=== PATIENT | male | born 1940 | race Caucasian/White ===

== ENCOUNTER 2024-05-10 22:03 | Inpatient (IN) | payer OTHER, SELFPAY ==
[2024-05-10] VITALS (7 sets, daily range): BP systolic 173–217; BP diastolic 76–91
--- NOTE | 2024-05-10 17:16 | ED.GENMED ---
History of Present Illness
General
Chief Complaint: Fever
Source: patient, family (Daughter at bedside) and gill box fixer (Language line gill box fixer)
Exam Limitations: none
Time Seen by Provider: 05/10/24 17:12
Nursing documentation reviewed up to this point in time: agreed with
History of Present Illness
History of Present Illness:
83 yo male from home, non Bulgarian speaking, Ukranian only, seems confused, follows few commands from Language Line, not answering questions from Language line gill box fixer. Will await family who is reportedly on their way.
Pt temp for EMS 101.2, given NSS 1 L IV en route. Pt is alert, not speaking.
Daughter now at bedside speaking through language line gill box fixer. She states for the past 2 to 3 days patient has had gradually decreasing appetite, today his face was red, he complained of pain in his legs, and his heart. States he typically
walks with a cane, he has been weak.
She denies him having any history of dementia but she does state he speaks with 'his Varinder' and has 'moment when he is talking to his Varinder to see what he should do.'
At this time, she is asking him if he has chest pain, trouble breathing, abdominal pain all to which she states no. He also has had no nausea or vomiting, diarrhea or constipation.
Daughter states 1 month ago he went to the [place] ER and was told he had high blood pressure of 160/100, he was put on hypertensive medications for 30 days but then he ran out and she never got it refilled.
His only medication now with him is isosorbide 30 mg at bedtime which was filled on 04/19/2024.
Daughter states his only other medical history is an inguinal hernia.
Past History
Past History
ED Past Medical History: HTN
ED Past Surgical History: Other (Inguinal hernia)
Review of Systems
Review of Systems
Allergies reviewed?: Yes
Other source history: family and other (Language line)
Constitutional: Reports fever (100.1 rectally here, reported 101.2 by EMS) and fatigue
Respiratory: Denies cough or trouble breathing
Cardiac: Denies chest pain, diaphoresis or syncope
ABD/GI: Denies abdominal pain, nausea, vomiting, diarrhea or constipated
: Denies dysuria, frequency or difficulty voiding
Musculoskeletal: Reports no symptoms
Skin: Reports no symptoms
Neurological: Reports no symptoms
Phy Exam
Physical Exam
Physical Exam:
GENERAL: No acute distress. A&Ox3.
CONSTITUTIONAL: Afebrile.
EYES: clear, conjunctivae normal
ENMT: moist mucus membranes, Pharynx nl
RESPIRATORY: Regular respirations, nonlabored, lungs clear.
CARDIOVASCULAR: Regular rate and rhythm, no murmurs, no rubs.
GI: Soft, nontender, normal BS
MUSCULOSKELETAL: Moves with ease. Well perfused. No edema
SKIN: Warm, dry, pink
PSYCH: Quiet, admits he's 'afraid' per daughter, depressed mood and affect. Well kept, interactive and appropriate with daughter
NEUROLOGIC: Awake, alert and oriented. No focal neurological deficits
Course
Orders/Labs/Results
Orders:
Orders
05/10/24 17:14
Straight cath- Treatment ONCE
05/10/24 17:15
Electrocardiogram (*1) Urgent
Reason for Study: Other
Other Reason for Exam: sepsis
EKG- Treatment ONCE
CR Chest Portable - 1 View Urgent
Comment:
Reason For Exam: Fever
Reason Study Needs to be Portable: Unable to Transport
05/10/24 17:16
0.9% Sodium Chloride 1000 ml [Nss] 1,000 ml IV BOLUS
Acetaminophen [Tylenol/Feverall] 650 mg RECTAL NOW STA
05/10/24 17:22
Complete Blood Count/With Diff Urgent
Comprehensive Metabolic Panel Urgent
Lactic Acid Q4H
Comment: CANCEL 2nd LACTIC ACID IF 1st LACTIC ACID IS LESS THAN 2
PTT Urgent
Prothrombin Time Urgent
Blood Culture Q30M
CAREN Source: Blood/Venous
Specimen Description:
Influenza A+B Rapid Molecular Urgent
CAREN Source: Nasal Swab
Specimen Description:
05/10/24 17:24
COVID-19 Antigen Urgent
Source: Nasal Swab
05/10/24 17:31
Troponin I Urgent
05/10/24 17:48
Blood Culture Q30M
CAREN Source: Blood/Venous
Specimen Description:
05/10/24 17:50
Urinalysis Reflex To Culture Urgent
Date Specimen was Collected: 05/10/24
Time Specimen was Collected: 17:49
05/10/24 18:25
Influenza A+B Rapid Molecular Routine
CAREN Source: NSWAB
Specimen Description:
Date Specimen was Collected: 05/10/24
Time Specimen was Collected: 18:25
05/10/24 20:[address] [CT Head W/o Iv Contrast] Stat
Comment:
Reason For Exam: change in mental status
05/10/24 20:55
Admit/Transfer Patient As Directed
Co-Sign Provider:
Level of Care: Inpatient admission
Assign to:: Telemetry
Physician / Group: Fermin Marin
Diagnosis: pneumonia, TME
Reason for Telemetry: Arrhythmia
Date to Stop Telemetry: 05/13/24
Time to Stop Telemetry: 11:00
Reason for Hospitalization: pneumonia, TME
Expected length of stay greater than two midnights?: Yes
ELOS- Estimated Length of Stay in days: 3
I certify the patient meets the requirements for IP care: Yes
05/10/24 20:56
Code Status As Directed
Resuscitation Status: Full Code
05/10/24 21:01
CefTRIAXone [Rocephin] 1,000 mg IV NOW STA
Doxycycline Hyclate [Vibramycin] 100 mg 0.9% Sodium Chloride 250 ml [Nss] 250 ml IV NOW
05/10/24 21:03
Sterile Water [Sterile Water For Injection] 10 ml IV NOW STA
05/13/24 11:00
DC Protocol for Telemetry ONCE
Abnormal Lab Results
05/10/24
17:22
RBC 4.47 L 10^6/uL
(4.70-6.10)
Hgb 12.0 L g/dL
(13.0-18.0)
Hct 35.8 L %
(39.0-52.0)
MCH 26.8 L pg
(27.0-31.0)
Absolute Lymphs (auto) 1.1 L 10^3/uL
(1.2-3.4)
Neutrophils % 77.6 H %
(42.2-75.2)
Lymphocytes % 13.5 L %
(20.5-51.1)
PT 15.4 H Sec
(11.4-14.6)
Glucose 105 H mg/dl
(70-99)
Alkaline Phosphatase 136 H U/L
(38-126)
05/10/24 17:22
05/10/24 17:22
Vital Signs
Initial and Last Documented VS:
Initial Vital Signs
Temp Pulse Resp BP Pulse Ox
100.1 F 88 30 217/88 100
05/10/24 17:10 05/10/24 17:10 05/10/24 17:10 05/10/24 17:10 05/10/24 17:10
Last Documented Vital Signs
Temp Pulse Resp BP Pulse Ox
100.1 F 62 16 174/78 97
05/10/24 17:10 05/10/24 23:30 05/10/24 23:30 05/10/24 23:00 05/10/24 23:30
MDM/Problems Addressed
Differential Diagnosis Includes:
UTI,
MDM/Problems Addressed:
83 yo male from home, non Bulgarian speaking, Ukranian only, seems confused, follows few commands from Language Line, not answering questions from Language line gill box fixer. Will await family who is reportedly on their way.
Pt temp for EMS 101.2, given NSS 1 L IV en route. Pt is alert, not speaking.
Daughter now at bedside speaking through language line gill box fixer. She states for the past 2 to 3 days patient has had gradually decreasing appetite, today his face was red, he complained of pain in his legs, and his heart. States he typically
walks with a cane, he has been weak.
She denies him having any history of dementia but she does state he speaks with 'his Varinder' and has 'moment when he is talking to his Varinder to see what he should do.'
At this time, she is asking him if he has chest pain, trouble breathing, abdominal pain all to which she states no. He also has had no nausea or vomiting, diarrhea or constipation.
Daughter states 1 month ago he went to the [place] ER and was told he had high blood pressure of 160/100, he was put on hypertensive medications for 30 days but then he ran out and she never got it refilled.
His only medication now with him is isosorbide 30 mg at bedtime which was filled on 04/19/2024.
Daughter states his only other medical history is an inguinal hernia.
1819:
CBC unremarkable
CMP Normal
Troponin WNL
U/A neg
[facility] [address] called: Pt HTN medication was not on file there
Chest x-ray radiology report read: IMPRESSION:
Mild medial right upper lobe pneumonia versus pleural-based mass. This would better be evaluated by chest CT examination preferably with IV contrast. Vascular shadows cannot be excluded.
Patient mild change in mental state most likely due to his pneumonia infection.
Daughter at bedside states he is responding normally to her
8:00 p.m.
Plan: Admit: Pneumonia: Change in mental state
Hospitalist notified of admission
*Critical Care Note
Total Time (30-74mins, 75-104mins- exclusive of procedures): Not Applicable
ED Attending Note
-
Portions of this chart may have been created with voice recognition software.� Occasional wrong word or��sound alike� substitutions may have occurred due to the inherent limitations of voice recognition software.
Discharge Plan
Departure
Patient Disposition: Admit
Date of Disposition: 05/10/24
Time of Disposition: 19:54
Admit to: Med/Surg
Presentation/result/management discussed w/ accepting MD/DO: Hospitalist
Condition: Fair
Covid-19: Negative COVID-19
Discharge Problem:
RLL pneumonia, Altered mental state
Interventions
Interventions:
*Risk Screen - Suicide Last Done: 05/10/24 17:10
*General Assessment Last Done: 05/10/24 17:10
*Neglect/Abuse Screening Last Done: 05/10/24 17:10
ED- Fall Risk Assessment Last Done: 05/10/24 18:35
*ED COVID-19 Vaccine History Last Done: 05/10/24 17:10
*Nursing Disposition Last Done: 05/10/24 23:31
ED- Neurological Assessment Last Done: 05/10/24 17:27
ED-Skin Assessment Last Done: 05/10/24 17:28
[2024-05-10 17:34] LABS: % Basophils 0.1 % (0-2); % Eosinophils 0.5 % (0-6); % Immature Granulocytes 0.5 % (0-0.5); % Lymphocytes 13.5 % (20.5-51.1); % Monocytes 7.8 % (1.7-9.3); % Neutrophils 77.6 % (42.2-75.2); Absolute Lymphocytes 1.1 10^3/uL (1.2-3.4); Absolute Monocytes 0.6 10^3/uL (0.1-0.6); Absolute Neutrophils 6.4 10^3/uL (1.4-6.5); Hematocrit 35.8 % (39.0-52.0); Mean Corp Hgb Conc. 33.5 g/dL (33.0-37.0); Mean Corpuscular Hgb 26.8 pg (27.0-31.0); Mean Corpuscular Volume 80.1 fL (80.0-94.0); Mean Platelet Volume 8.7 fL (7.4-10.4); Nucleated Red Blood Cells % 0 % (-); Platelet Count 248 10^3/uL (130-400); Red Blood Cell Count 4.47 10^6/uL (4.70-6.10); Red Cell Dist. Width 12.6 % (11.5-14.5); White Blood Cell Count 8.2 10^3/uL (4.8-10.8)
[2024-05-10 17:45] LABS: INR 1.17; PT 15.4 Sec (11.4-14.6)
[2024-05-10 17:46] LABS: APTT 30.1 Sec (23.4-35.0)
[2024-05-10 17:48] LABS: COVID-19 Antigen Negative (Negative)
[2024-05-10 17:48] LABS: Lactic Acid 1.7 mmol/L (0.7-2.0)
[2024-05-10 17:49] LABS: ALT (SGPT) 12 U/L (0-50); AST (SGOT) 18 U/L (17-59); Albumin 3.7 g/dl (3.5-5.0); Alkaline Phosphatase 136 U/L (38-126); Blood Urea Nitrogen 18 mg/dl (9-20); Calcium 8.6 mg/dl (8.4-10.2); Carbon Dioxide 22 mmol/L (22-30); Chloride 105 mmol/L (98-107); Glucose 105 mg/dl (70-99); Potassium 3.7 mmol/L (3.5-5.1); Sodium 138 mmol/L (135-145); Total Bilirubin 0.7 mg/dl (0.2-1.3); eGFR > 60.00
[2024-05-10] MEDS: TYLENOL/FEVERALL 650 MG RECTAL (17:52)
[2024-05-10 18:21] LABS: Troponin I < 0.012 ng/ml
[2024-05-10] MEDS: NSS 1000 IV (18:23)
[2024-05-10 18:48] LABS: Urine Albumin Negative (Neg - Trace); Urine Bilirubin Negative (Negative); Urine Character Clear (Clear); Urine Color Yellow; Urine Glucose Negative (Negative); Urine Ketone Negative (Negative); Urine Leukocyte Negative (Negative); Urine Nitrite Negative (Negative); Urine Occult Blood Negative (Negative); Urine Urobilinogen Negative (Neg - 1+)
--- NOTE | 2024-05-10 20:22 | HPS.HSE ---
Addendum entered and electronically signed by Fermin Marin MD 05/10/24 21:14:
see update note for addendum
Original Note:
Family Physician
-
Family Physician: Benji Fernandez
Chief Complaint
-
fever
History of Present Illness
Patient is a 83-year-old male with past medical history significant for hypertension who presented to [facility] ED for evaluation of fever. Patient daughter and grandson at bedside to assist in history. Patient was at baseline yesterday with just a
decreased appetite. Today is reported he had bilateral lower extremity pain and difficulty ambulating, with decreased appetite and red face. Family brought him for evaluation and at ED assessment patient was nonverbal. Patient normally ambulates
with assistance of cane at home. Daughter described patient speaks with 'his sabino' and will ask 'his angle what he should do.' Denies any psych or dementia diagnosis. Denies any chills, shortness of breath, nausea, vomiting, constipation, diarrhea
or urinary symptoms.
Medical History
Past Medical History
Past Medical History: Reports Other
Additional Past Medical History:
hypertension
Past Surgical History: Reports None
Social History
Tobacco: Non-smoker
Alcohol: None
Drug: None
Living: With Family
Family History
Family History: Unable to Obtain
Allergies / Home Medications
Allergies reflects when Allergies were last updated in [employer].
Home Medications with original date entered in [employer]
Allergy/Medication List:
Allergies
Allergy/AdvReac Type Severity Reaction Status Date / Time
No Known Allergies Allergy Verified 05/10/24 20:16
Home Medications
isosorbide mononitrate 30 mg tablet,extended release 24 hr 30 mg PO DAILY 05/10/24
Review of Systems
-
Unable to obtain full review of systems at this time due to: Patient Non-verbal
History Source: Patient and Family
Constitutional: Reports Fever
EENT: Reports No Symptoms
Respiratory: Reports No Symptoms
Cardiac: Reports No Symptoms
Abdomen/GI: Reports Anorexia (decreased PO intake over past several days)
: Reports No Symptoms
Musculoskeletal: Reports Other (bilateral leg pain)
Skin: Reports No Symptoms
Neurological: Reports Weakness
Endocrine: Reports No Symptoms
Hematologic/Lymphatic: Reports No Symptoms
Psych: Reports No Symptoms
Physical Exam
Vital Signs
Vital Signs
Temp Pulse Resp BP Pulse Ox
100.1 F 84 14 182/87 96
05/10/24 17:10 05/10/24 19:00 05/10/24 19:00 05/10/24 19:00 05/10/24 19:00
Physical Exam
General: Well Developed and No Apparent Distress
HEENT: NormoCephalic, Moist mucous membranes, Atraumatic, [place] Conjunctivae, Nose Appears Normal and Ears Appear Normal
Respiratory: Clear, Non Labored Respirations and Decreased Breath Sounds
Cardiac: S1/S2 and Regular Rhythm; No Murmur, Rub or Gallop
Breast: Deferred by me
GI: Soft, Non Tender, Non Distended and Normal Bowel Sounds; No Organomegaly
Rectal: Deferred by Provider
Genito-urinary: Deferred by me
Musculoskeletal: No Clubbing, No Cyanosis and No Edema
Skin: Warm and IV/Catheter Site; No Rash
Neuro: Awake and Nonfocal/grossly intact
Laboratory Results
-
05/10/24 17:22
05/10/24 17:22
Laboratory Results
PT 15.4 Sec (11.4-14.6) H 05/10/24 17:22
INR 1.17 05/10/24 17:22
APTT 30.1 Sec (23.4-35.0) 05/10/24 17:22
Lactic Acid Cancelled 05/10/24 21:15
Total Bilirubin 0.7 mg/dl (0.2-1.3) 05/10/24 17:22
AST 18 U/L (17-59) 05/10/24 17:22
ALT 12 U/L (0-50) 05/10/24 17:22
Alkaline Phosphatase 136 U/L (38-126) H 05/10/24 17:22
Troponin I < 0.012 ng/ml 05/10/24 17:31
Data Reviewed
-
Diagnostic Radiology: Report Reviewed by me (CRX: Mild medial right upper lobe pneumonia versus pleural-based mass. This would better be evaluated by chest CT examination preferably with IV contrast. Vascular shadows cannot be excluded.)
Medical Tests (Nuc Med, Echo, EKG etc): Report Reviewed by me (EKG: NORMAL SINUS RHYTHM LEFT AXIS DEVIATION)
Lab Data: Labs Reviewed by me
Impression/Plan
-
IMPRESSION/PLAN:
#change in mental status
#pneumonia
CXR: Mild medial right upper lobe pneumonia versus pleural-based mass. This would better be evaluated by chest CT examination preferably with IV contrast. Vascular shadows cannot be excluded.
Covid/Influenza: negative
Head CT: pending
Chest CT: pending
- admit to telemetry
- IV antibiotics
- supportive care
- PT/OT evaluation
- NPO until speech evaluation
#hypertension
- continue isosorbide
- PRN hydralazine SBP >160
Code status: full code
DVT prophylaxis: Lovenox sq
--- NOTE | 2024-05-10 21:14 | W.PN.UPDATE ---
Update Note
Progress Note Update
I saw and examined the patient.
The PATTERN GRADER SUPERVISOR Kasia's note was reviewed and I agree with the note.
Comment: Briefly, an 83 y/o M, hx of HTN presenting to ER with fever, decreased appetite/oral intake and generalized lower extremity weakness with ambulating. Patient progressively worse and at one point became nonverbal. Baseline ambulates with
cane. Daughter reports some hallucinations. No known dementia or psych history per family. No other complaints.
Workup in ER revealed CXR with PNA vs Mass for which CT chest was recommended. CT head also ordered. IV abx were started.
Physical Exam
General: Well Developed and No Apparent Distress
HEENT: NormoCephalic, Moist mucous membranes, Atraumatic, [place] Conjunctivae, Nose Appears Normal and Ears Appear Normal
Respiratory: Clear, Non Labored Respirations and Decreased Breath Sounds
Cardiac: S1/S2 and Regular Rhythm; No Murmur, Rub or Gallop
Breast: Deferred by me
GI: Soft, Non Tender, Non Distended and Normal Bowel Sounds; No Organomegaly
Rectal: Deferred by Provider
Genito-urinary: Deferred by me
Musculoskeletal: No Clubbing, No Cyanosis and No Edema
Skin: Warm and IV/Catheter Site; No Rash
Neuro: Awake and Nonfocal/grossly intact
Plan: Likely metabolic encephalopathy from presumed pneumonia. IV Abx ordered. AM procal. obtain recommended CT chest with IV Contrast to further evaluate CXR findings of PNA or mass. evaluate for occult CVA with CT head. IVF. NPO pending ST eval
[2024-05-10] MEDS: ROCEPHIN 1000 MG IV (21:22)
[2024-05-10] MEDS: STERILE WATER FOR INJECTION 10 ML IV (21:22)
[2024-05-10] MEDS: VIBRAMYCIN 260 MG IV (21:30)
[2024-05-11] VITALS (12 sets, daily range): BP systolic 106–202; BP diastolic 68–100; PULSE 99; O2SAT 100; BMI 21.1
[2024-05-11] MEDS: NSS 1000 IV (01:56)
[2024-05-11] MEDS: APRESOLINE 5 MG IV ×2 (03:43→08:24)
--- NOTE | 2024-05-11 05:27 | PTCARENOTE ---
Pt arrived to floor via stretcher from the ED. Pt AAOx2- Ukranian speaking. Pt with very scared fearful look on face. Language line obtained, Pt asking for toilet, pt attempted to use urinal laying in bed, pt unable to void. Pt assisted to stand at
bedside, pt able to void 100ml clear yellow urine. Pt continues to attempt to void, repeating 'toilet', but unable to void anymore. Bladder scan performed, 650ml scanned, St cath order obtained, pt st cathed for 600ml clear yellow urine. Pt agitated
and fighting during initial st cath, but once bladder draining was calm. Language line once again attempted now that bladder emptied. Pt able to state he is in hospital, but states he is scared at home bc someone is casting spells on him. Emotional
support provided via science technician. Pt denies any complaints of pain at this time. Left AC int leaking, VAT RN at bedside to place new line. NSS @ 80ml/hr now infusing via right wrist #24 int. BP elevated 202/100, PRN Hydralazine administered as
ordered, Repeat BP 166/81. Bed alarm on bed. Call lagunas in reach. Will continue to monitor..
[2024-05-11 07:24] LABS: Hematocrit 35.3 % (39.0-52.0); Mean Corpuscular Hgb 27.3 pg (27.0-31.0); Mean Corpuscular Volume 80.2 fL (80.0-94.0); Mean Platelet Volume 8.9 fL (7.4-10.4); Platelet Count 236 10^3/uL (130-400); Red Cell Dist. Width 12.8 % (11.5-14.5); White Blood Cell Count 7.7 10^3/uL (4.8-10.8)
[2024-05-11 07:52] LABS: ALT (SGPT) 11 U/L (0-50); AST (SGOT) 19 U/L (17-59); Albumin 3.4 g/dl (3.5-5.0); Alkaline Phosphatase 120 U/L (38-126); Blood Urea Nitrogen 13 mg/dl (9-20); Calcium 8.7 mg/dl (8.4-10.2); Carbon Dioxide 24 mmol/L (22-30); Chloride 105 mmol/L (98-107); Estimated Creatinine Clearance 64 ml/min; Glucose 97 mg/dl (70-99); Potassium 3.9 mmol/L (3.5-5.1); Sodium 136 mmol/L (135-145); Total Protein 6.5 g/dl (6.3-8.2); eGFR > 60.00
[2024-05-11] MEDS: FLUSH (NSS) 1 FLUSH IV (08:10)
[2024-05-11] MEDS: VIBRAMYCIN 260 MG IV ×2 (08:10→20:17)
--- NOTE | 2024-05-11 08:55 | PTOTSP ---
Speech Language Pathology
Pt seen for clinical bedside swallow evaluation. P.O. trials of puree, regular solids, and thin liquids provided. Adequate mastication, bolus formation, and A-P transit noted with no oral residue. No overt signs of aspiration.
Recommend:
(1) Regular solids/thin liquids
(2) General aspiration precautions
(3) Meds as tolerated
(4) POSTAGE MACHINE OPERATOR to sign off. Please reconsult as indicated
--- NOTE | 2024-05-11 10:19 | PTCARENOTE ---
Pt voided 150 ml clear yellow urine in urinal; bladder scanned for 634 ml. Attempted to straight cath pt- unable to pass catheter; pt in much discomfort during attempt. Dr. Marin notified. Will continue to monitor.
[2024-05-11] MEDS: IMDUR (EXTENDED RELEASE) 30 MG PO (10:33)
[2024-05-11 12:37] LABS: Procalcitonin < 0.05 ng/ml (0.0-0.25)
--- NOTE | 2024-05-11 12:46 | CONS.URO ---
Consultation
-
Date/Time Consultation Requested: 05/11/24 1215
Date/Time Consultation Performed: 05/11/2024 1225
Requesting Provider: Brianna
Performing Provider: Evan
Reason for Consultation: Meza placement
Medical History
History of Present Illness
Dr Reed indicated that medical staffing coordinator was unable to place Meza and requested that a Meza be placed.
Allergies/Home Medications
Allergies
Allergy/AdvReac Type Severity Reaction Status Date / Time
No Known Allergies Allergy Verified 05/10/24 20:16
Home Medications
�Medication �Instructions �Recorded �Confirmed �Type
isosorbide mononitrate 30 mg 30 mg PO DAILY 05/10/24 05/10/24 History
tablet,extended release 24 hr
Physical Exam
Vital Signs
Vital Signs
Temp Pulse Resp BP Pulse Ox
98.1 F 91 18 175/90 100
05/11/24 11:27 05/11/24 11:27 05/11/24 11:27 05/11/24 11:27 05/11/24 11:27
Lab / Testing Results
Laboratory Results
05/11/24 07:12
05/11/24 07:12
Physical Exam
elderly male in bed
uncircumcised phallus: prepped; 16 Fr Meza placed with return of urine
Assessment / Plan
-
urinary retention
difficult Meza placement
--- NOTE | 2024-05-11 13:12 | PTCARENOTE ---
# [address] F [address] by [address] Gordon. Meza patent large amts clear yellow urine. leg strap applied to Rt thigh; unable to secure Statlok d/t Meza length. Will continue to monitor.
[2024-05-11] MEDS: FLOMAX 0.4 MG PO (14:07)
[2024-05-11] MEDS: TYLENOL 650 MG PO (14:07)
[2024-05-11 14:41] LABS: PSA, Total - Screen 0.47 ng/ml (0.0-4.0)
--- NOTE | 2024-05-11 16:15 | W.PN.HOSP.TC ---
Today's Communication/Plan
-
Hold Meza catheter for acute retention.
Flomax.
Outpatient urology follow-up
Follow blood cultures
Maintain antibiotics for 24 hours pending complete ID workup
Physical therapy assessment
Assessment / Plan
Assessment / Plan
Impression:
83 years old male with hypertension presenting from home with reported decreased oral intake, generalized lower extremity weakness, ambulatory dysfunction, reported agitation and hallucinations.
Encephalopathy acute with underlying dementia
Acute urinary retention
Suspect underlying dementia
Essential hypertension
Plan:
Failure to thrive, patient's son reports overall cognitive declining over the past few months (patient currently brought from [facility] by family)
Episode of agitation at home possibly related to acute urinary retention
Exam with no focal findings.
Oriented to name and place but not in time.
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
Acute urinary retention requiring Meza catheter placement by urology (difficult placement) on 05/11. Initiated Flomax.
Normal urinalysis.
Reported fever at home.
Currently afebrile and nontoxic-appearing.
Chest x-ray/CT scan of the chest with no acute abnormalities.
Blood cultures pending
Continue antibiotics for another 24 hours pending blood cultures results. Low threshold for discontinuation if negative ID workup overall
Physical therapy assessment
Discharge planning
Plan of care discussed with patient's son over the phone
Anticipated Discharge: 24 - 48 hours
Subjective/Interval History
-
Date of Service: May 11, 2024
Objective Data
-
Labs:
Laboratory Results
05/11/24
07:12
WBC 7.7
Hgb 12.0 L
Hct 35.3 L
Plt Count 236
Sodium 136
Potassium 3.9
Chloride 105
Carbon Dioxide 24
BUN 13
Creatinine 0.8
Glucose 97
Calcium 8.7
Total Bilirubin 1.0
AST 19
ALT 11
Alkaline Phosphatase 120
Vital Signs:
Vital Signs
Temp Pulse Resp BP Pulse Ox
98.1 F 91 18 175/90 98
05/11/24 11:27 05/11/24 11:27 05/11/24 11:27 05/11/24 11:27 05/11/24 16:14
I&O
05/10/24 05/11/24 05/12/24
06:59 06:59 06:59
Output Total 1700 / 1700
Balance -1700 / -1700
Physical Exam
-
General: Well Developed and No Apparent Distress
HEENT: Normocephalic, Atraumatic and Moist Mucous Membranes
Respiratory: Clear to Auscultation
Cardiac: Regular Rhythm and S1/S2; Negative Murmur, Rub or Gallop
GI: Soft, Nontender, Nondistended and Normal Bowel Sounds; Negative Organomegaly
Rectal: Deferred by Provider
Musculoskeletal: No Clubbing, No Cyanosis and No Edema
Skin: Negative Rash
Neuro: Awake, Alert, Oriented (Name and place not in time) and Nonfocal/Grossly Intact
--- NOTE | 2024-05-11 16:15 | PTCARENOTE ---
Pt awake and alert; oriented to self /'in a hospital'- per trading manager. Speaks Moh[place]; utilizing language line with minimal effect; pt becomes angry/agitated when speaking with dye weigher. GRACE; OOB to chair with assist x1; unsteady w/OOB
activity. VSS. On room air- pulse ox 98%, no SOB noted. Abd large, soft, gertrudis PO, appetite fair. Meza P/I large amts clear yellow urine; pt repeatedly attempting to pull at tubing; needs frequent reminders not to touch catheter. Face flushed;
afebrile. Resting in chair at present. Will continue to monitor..
--- NOTE | 2024-05-11 17:14 | CM ---
Alert awake patient who lives with his son Joce and sarah Faust who lives in a 1 story home with 3 step to enter.Pt and family speak Mongolian. Spoke with dil and was able to determine pt is assisted ADls . He uses a cane. Pt has Jon cath.
Pharmacy [facility]
PCP DR Multani
PLAN Will need PT OT for dc plan
[2024-05-11] MEDS: LOVENOX SC (17:16)
[2024-05-11] MEDS: ROCEPHIN 1000 MG IV (20:16)
[2024-05-11] MEDS: STERILE WATER FOR INJECTION 10 ML IV (20:16)
--- NOTE | 2024-05-12 06:20 | W.PN.UPDATE ---
Update Note
Progress Note Update
0600 pt needing restraints (wrists) as pt attempting to pull ayon cath. Agitated and non directable. Will try im haldol x1
[2024-05-12] MEDS: HALDOL 1 MG IM (06:55)
[2024-05-12 07:15] VITALS: BP 163/111
--- NOTE | 2024-05-12 07:33 | PTCARENOTE ---
Patient placed in B/L soft wrist restraints at 0610 due to not following commands, combative, attempting to pull ayon. Patient given x1 dose IM haldol. Will continue to monitor.
--- NOTE | 2024-05-12 08:41 | W.PN.URO.CBU ---
Today's Communication / Plan
-
Keep Meza
prostate u/s to size gland
outpatient f/u
Assessment / Plan
-
AUR
Diagnosis
-
Date of Service: May 12, 2024
-
Patient Diagnosis:
Acute Urinary Retention
Meza place 05/11/2024 for ~ 700 ml
Objective
-
Vital Signs
Temp Pulse Resp BP Pulse Ox
99.3 F 114 16 163/111 97
05/12/24 07:15 05/12/24 07:15 05/12/24 07:15 05/12/24 07:15 05/12/24 07:15
Intake and Output
05/11/24 05/12/24 05/13/24
06:59 06:59 06:59
Intake Total 1060 / 1060
Output Total 1700 / 1700 1500 / 1500
Balance -1700 / -1700 -440 / -440
Intake:
Oral fluids 480 / 480
IV fluids (Total) 320 / 320
IV piggybacks 260 / 260
Output:
Urine, Meza 1150 / 1150
Urine, Voided 1100 / 1100 350 / 350
Straight cath output 600 / 600
PSA < 0.5
Physical Exam
-
General - well developed, well nourished, no acute distress
Chest - clear bilaterally
Abdomen - soft, non-tender, positive bowel sounds, no CVAT, no incisional pain or distention
Genitalia - normal
Rectal - normal
Skin - warm & dry with no rash
Neuro - AOx3, no motor deficits
Extremities - no clubbing, no cyanosis, no edema
Incision - clean, dry
Dressing - clean, dry, intact
[2024-05-12 08:42] VITALS: BP 174/92
[2024-05-12] MEDS: VIBRAMYCIN 260 MG IV (08:46)
[2024-05-12] MEDS: FLOMAX PO ×2 (08:46→11:17)
[2024-05-12] MEDS: IMDUR (EXTENDED RELEASE) PO ×2 (08:46→11:17)
[2024-05-12] MEDS: FLUSH (NSS) 2 FLUSH IV (08:47)
[2024-05-12] MEDS: APRESOLINE 5 MG IV (08:48)
--- NOTE | 2024-05-12 10:08 | CM ---
Shannan speaking pt with Meza.
Pt confused and trying to pull at Meza.
PT OT indicate SNF VS Home with VN .
Will continue to assess and assist with dc planning.
Pt lives with son and dil.
PLAN SNF VS Home with PT
--- NOTE | 2024-05-12 11:33 | PTCARENOTE ---
patient agitated this am, received in bilat wrist restraints, confused, uncooperative with care, refused am blood draw, refused am medications, spit them out. did eat some scrambled eggs for breakfast but refused any oral fluids. encouraged patient
to eat and drink, but still refused. Dr Mckeon aware of aove. plan of care on gong.
--- NOTE | 2024-05-12 12:44 | CON.ID ---
Consultation
-
Date/Time Consultation Requested: 05/12/2024 0933
Date/Time Consultation Performed: 05/12/2024 1245
Requesting Provider: Dr. Db Mckeon
Performing Provider: Dr. Mary Winn
Reason for Consultation: Bacteremia
Chief Complaint / Past History
Chief Complaint
Weakness
History of Present Illness
History obtained from review medical records since patient has dementia and unable to provide a meaningful history. He is an 83-year-old male with history of hypertension who was brought to the hospital May 10 due to weakness, ambulatory
dysfunction and poor appetite. By report he had fever at home. Workup in the hospital included chest x-ray which initially showed possible pneumonia and therefore he was placed on ceftriaxone and doxycycline. Procalcitonin normal. Chest CT
showed no pneumonia. Patient also noted to be in acute urinary retention requiring Ayon placement with 700 cc of urine evacuated. Admission blood culture with gram-positive cocci.
Past History
Additional Past Medical History:
Dementia
HTN
Allergy History:
No Known Allergies Allergy (Verified 05/10/24 20:16)
Medications Reviewed: Yes
Current Antibiotics:
Ceftriaxone d3
doxycycline 100mg IV q12 d3
Social History
Tobacco: Non-Smoker
Alcohol: None
Drug: None
Living: With Family
Family History
Family History: Not Pertinent
Review of Systems
Review of Systems
Unable to obtain due to dementia.
Vital Signs
Temp Pulse Resp BP Pulse Ox
99.3 F 101 16 174/92 97
05/12/24 07:15 05/12/24 08:42 05/12/24 07:15 05/12/24 08:48 05/12/24 07:15
Physical Exam
Physical Exam
Constitutional: Chronically Ill
Head: Other (No frontal or max or sinus tenderness)
Eyes: No Conjunctival Hemorrhage and Sclera Anicteric; Negative Erythema
Cardiovascular: Regular Rate and S1/S2
Pulmonary: Clear
Gastrointestinal: Soft, Non Tender and Normal Bowel Sounds
Genito-Urinary: Ayon and Clear Urine
Extremities: Negative Edema
Neurological: Awake
Psychological: Agitated
Lab / Diagnostic Study Results
Abs Immat Gran (auto) 0.0 10^3/uL (0-0.05) 05/10/24 17:22
Absolute Neuts (auto) 6.4 10^3/uL (1.4-6.5) 05/10/24 17:22
Absolute Lymphs (auto) 1.1 10^3/uL (1.2-3.4) L 05/10/24 17:22
Absolute Monos (auto) 0.6 10^3/uL (0.1-0.6) 05/10/24 17:22
Absolute Basos (auto) 0.0 10^3/uL (0-0.2) 05/10/24 17:22
Immature Gran % 0.5 % (0-0.5) 05/10/24 17:22
Neutrophils % 77.6 % (42.2-75.2) H 05/10/24 17:22
Lymphocytes % 13.5 % (20.5-51.1) L 05/10/24 17:22
Monocytes % 7.8 % (1.7-9.3) 05/10/24 17:22
Eosinophils % 0.5 % (0-6) 05/10/24 17:22
Basophils % 0.1 % (0-2) 05/10/24 17:22
PT 15.4 Sec (11.4-14.6) H 05/10/24 17:22
INR 1.17 05/10/24 17:22
Lactic Acid Cancelled 05/10/24 21:15
Procalcitonin < 0.05 ng/ml (0.0-0.25) 05/11/24 11:53
Microbiology Results
Micro:
05/10/24 17:48 Blood Culture - Preliminary
Blood/Venous Positive culture in progress
Gram Stain - Preliminary
05/10/24 17:22 Blood Culture - Preliminary
Blood/Venous No Growth in 24 hours- Final report to follow
05/11/24 01:33 Legionella Urinary Antigen - Final
Urine Negative for Legionella pneumophila Serogroup 1 antigen.
A negative result does not rule out the possiblity of
Legionella infection due to other serogroups or species of
Legionella. Clinical correlation is recommended.
Streptococcus pneumoniae Antigen (M - Final
Negative for Streptococcus pneumoniae antigen.
A negative result does not exclude infection with
Streptococcus pneumoniae. Clinical correlation is
recommended.
05/10/24 18:25 Influenza Types A & B (BRANDEN) - Final
Nasal Swab Negative for Influenza A & B, NAAT
Negative results must be combined with clinical observations
and patient history.
Nucleic Acid Amplification test (NAAT)performed on the
[employer] NOW platform.
05/10/24 17:22 Influenza Types A & B (BRANDEN) - Final
Nasal Swab Test repeatedly invalid.
Nucleic Acid Amplification test (NAAT)performed on the
[employer] NOW platform.
05/11/24 CT chest: Mild bibasilar subsegmental atelectasis, otherwise clear lungs. Abnormality on chest x-ray was likely related to tortuosity of the brachiocephalic artery, best appreciated on coronal images.
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
Assessment / Plan
# CoNS bacteremia 1 of 2 sets = contaminant
- No need to treat.
# PNA ruled out with clear Chest CT and negative procalcitonin.
- DC ceftriaxone and doxycycline
# Acute urinary retention now with ayon.
# Dementia.
ID will sign off. Call prn.
Care Review
Plan reviewed with: Physician (Dr. Mckeon)
--- NOTE | 2024-05-12 14:05 | CON.MD ---
Consultation - Medical
-
patient seen chart reviewed. discussed with nursing the patient is an 83 year man who speaks serbian or ukranian and understands from my interaction with him no ecuadorean. he was brought in by family w c.o weakness pain and no appetite. the patient
is described by family as 'talking to his sabino'. the family denies any hx of psych or dementia. i did attempt to call son at the number in the chart but there was no answer left message. also attempted to locate the project archivist to no avail. "Salena"abbey with whom i spoke did inform me that the patient was not oriented to place or time and it was his impression that he suffered from dementia or at least tme as was the opinion of nursing. the patient has been agitated intermittently and
attempted to pull our ayon and on more than one occasion was agitated. hence this consultation. the patient has a ayon given urinary retention and has been seen by urology. as far as a reason for sx at admit patient does have positive blood
culture in progress. chest ct is without infection and antibiotics dc'ed. cat brain shows an old occipital r infarct and some mild ischemic disease today's labs are pending but yesterday chemistry look ok hgb 12. don't see b12 folate vit or tsh
which i will order
past psych hx denied by family in the er
medical see above it is noted patient has hx of hypertension dx [facility] but he ran out of meds since. bp noted to be elevated on admit. qtc 467 abnormal ecg
other parts of the history will need to be ascertained by staff when talking to family
mse unable to fully assess. from what staff has been able to glean patient is confused and intermittently agitated whether this is tme and or dementia will remain to be seen
recommendations at this point for agitation could try risperdal m tabs o.5 mg q 8h . nursing tells me they don't think they will be able to get him to take then. then would suggest zyprexa im to protect him from harm to self or others. i was unable
to reach family to discuss and left message asking him to call dr potter to discuss our recommendations of which dr potter is aware. psych will loook in on him tomorrow. check b12 folate vit d and tsh.
--- NOTE | 2024-05-12 14:22 | W.PN.HOSP.TC ---
Addendum entered and electronically signed by Db Mckeon MD 05/12/24 14:37:
ECG reviewed. NSR with normal intervals including QTc
Original Note:
Today's Communication/Plan
-
Maintain Meza
Restraints
Initiated on Zyprexa and Risperdal for agitation
Observe off antibiotics
Assessment / Plan
Assessment / Plan
Impression:
83 years old male with hypertension presenting from home with reported decreased oral intake, generalized lower extremity weakness, ambulatory dysfunction, reported agitation and hallucinations.
Encephalopathy acute with underlying dementia
Acute urinary retention
Suspect underlying dementia with behavioral disturbances
Essential hypertension
Plan:
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
Failure to thrive, patient's son reports overall cognitive declining over the past few months (patient currently brought from [facility] by family)
Episode of agitation at home possibly related to acute urinary retention
Exam with no focal findings.
Oriented to name and place but not in time.
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
Noted with agitation overnight requiring Haldol and restraints.
Psychiatry input appreciated
Initiated on Zyprexa and Risperdal. Titrate regimen for another 24 to 48 hours
Acute urinary retention requiring Meza catheter placement by urology (difficult placement) on 05/11. Initiated Flomax.
Normal urinalysis.
Urology input appreciated
Reported fever at home.
Currently afebrile and nontoxic-appearing.
Chest x-ray/CT scan of the chest with no acute abnormalities.
Blood cultures with contaminant
Discussed with ID
Discontinue antibiotics (initially started with concern for primary primary) and observe
Physical therapy assessment
Discharge planning
Patient's [id number] updated over the phone to [phone]
Anticipated Discharge: 24 - 48 hours
Subjective/Interval History
-
Date of Service: May 12, 2024
Objective Data
-
Vital Signs:
Vital Signs
Temp Pulse Resp BP Pulse Ox
99.3 F 101 16 174/92 97
05/12/24 07:15 05/12/24 08:42 05/12/24 07:15 05/12/24 08:48 05/12/24 07:15
I&O
05/11/24 05/12/24 05/13/24
06:59 06:59 06:59
Intake Total 1060 / 1060 120 / 120
Output Total 1700 / 1700 1500 / 1500
Balance -1700 / -1700 -440 / -440 120 / 120
Physical Exam
-
General: Well Developed and No Apparent Distress
HEENT: Normocephalic, Atraumatic and Moist Mucous Membranes
Respiratory: Clear to Auscultation
Cardiac: Regular Rhythm and S1/S2; Negative Murmur, Rub or Gallop
GI: Soft, Nontender, Nondistended and Normal Bowel Sounds; Negative Organomegaly
Rectal: Deferred by Provider
Musculoskeletal: No Clubbing, No Cyanosis and No Edema
Skin: Negative Rash
Neuro: Awake, Alert, Oriented (Name and place not in time) and Nonfocal/Grossly Intact
[2024-05-12 15:03] VITALS: BP 174/94
[2024-05-12 16:51] LABS: % Basophils 0.2 % (0-2); % Immature Granulocytes 0.2 % (0-0.5); % Lymphocytes 20.3 % (20.5-51.1); % Monocytes 9.9 % (1.7-9.3); % Neutrophils 68.4 % (42.2-75.2); Absolute Eosinophils 0.1 10^3/uL (0-0.7); Absolute Lymphocytes 1.7 10^3/uL (1.2-3.4); Absolute Monocytes 0.8 10^3/uL (0.1-0.6); Absolute Neutrophils 5.7 10^3/uL (1.4-6.5); Hematocrit 33.4 % (39.0-52.0); Hemoglobin 11.1 g/dL (13.0-18.0); Mean Corp Hgb Conc. 33.2 g/dL (33.0-37.0); Mean Corpuscular Hgb 26.7 pg (27.0-31.0); Mean Corpuscular Volume 80.3 fL (80.0-94.0); Mean Platelet Volume 9.1 fL (7.4-10.4); Nucleated Red Blood Cells % 0 % (-); Platelet Count 246 10^3/uL (130-400); Red Blood Cell Count 4.16 10^6/uL (4.70-6.10); Red Cell Dist. Width 13.3 % (11.5-14.5); White Blood Cell Count 8.3 10^3/uL (4.8-10.8)
[2024-05-12 17:14] LABS: Blood Urea Nitrogen 10 mg/dl (9-20); Calcium 9.1 mg/dl (8.4-10.2); Carbon Dioxide 23 mmol/L (22-30); Chloride 106 mmol/L (98-107); Estimated Creatinine Clearance 64 ml/min; Glucose 97 mg/dl (70-99); Potassium 3.7 mmol/L (3.5-5.1); Sodium 138 mmol/L (135-145); eGFR > 60.00
[2024-05-12 17:32] LABS: Vitamin D, 25-OH*** 17.5 ng/mL (30-80)
[2024-05-12] MEDS: IMDUR (EXTENDED RELEASE) 30 MG PO (17:41)
[2024-05-12] MEDS: FLOMAX 0.4 MG PO (17:42)
[2024-05-12] MEDS: LOVENOX 40 MG SC (17:42)
[2024-05-12 17:45] LABS: TSH Reflex To Free T4 3.95 uIU/ml (0.47-4.68)
[2024-05-12 18:21] LABS: Folate 11.5 ng/ml (2.76-20); Vitamin B12 207 pg/ml (239-931)
[2024-05-12 23:36] VITALS: BP 122/70
[2024-05-13 06:00] VITALS: BMI 20.1
[2024-05-13 07:15] VITALS: BP 127/69
[2024-05-13] MEDS: FLOMAX 0.4 MG PO (10:01)
[2024-05-13] MEDS: IMDUR (EXTENDED RELEASE) 30 MG PO (10:01)
--- NOTE | 2024-05-13 12:19 | W.PN.ID1 ---
Date of Service
Date of Service: May 13, 2024
Today's Communication
Observe off abx.
ID will sign off.
Assessment / Plan
# Micrococcus bacteremia 1 of 2 sets = contaminant
- No need to treat.
# PNA ruled out with clear Chest CT and negative procalcitonin.
- DC'd ceftriaxone and doxycycline
# Acute urinary retention now with ayon.
# Dementia.
ID will sign off. Call prn.
Subjective / Review of Systems
on soft restraints
Vital Signs / Physical Exam
Vital Signs
Vital Signs
Temp Pulse Resp BP Pulse Ox
98.0 F 85 20 127/69 100
05/13/24 07:15 05/13/24 07:15 05/13/24 07:15 05/13/24 07:15 05/13/24 07:15
Physical Exam
Constitutional: Chronically Ill
Cardiovascular: Regular Rate and S1/S2
Pulmonary: Clear
Gastrointestinal: Soft, Non Tender and Non Distended
Genito-Urinary: Negative CVA Tenderness
Objective Data
Lab Data
Lab Results
05/12/24 16:30
05/12/24 16:30
PT 15.4 Sec (11.4-14.6) H 05/10/24 17:22
INR 1.17 05/10/24 17:22
APTT 30.1 Sec (23.4-35.0) 05/10/24 17:22
Estimated Creat Clear 64 ml/min 05/12/24 16:30
Lactic Acid Cancelled 05/10/24 21:15
Total Bilirubin 1.0 mg/dl (0.2-1.3) 05/11/24 07:12
AST 19 U/L (17-59) 05/11/24 07:12
ALT 11 U/L (0-50) 05/11/24 07:12
Alkaline Phosphatase 120 U/L (38-126) 05/11/24 07:12
Most recent labs reviewed.
Micro Results:
05/10/24 17:48 Blood Culture - Preliminary
Blood/Venous Micrococcus species
Gram Stain - Preliminary
05/13/24 05:42 Blood Culture - Pending
Blood/Venous
05/10/24 17:22 Blood Culture - Preliminary
Blood/Venous No Growth in 48 hours- Final report to follow
05/11/24 01:33 Legionella Urinary Antigen - Final
Urine Negative for Legionella pneumophila Serogroup 1 antigen.
A negative result does not rule out the possiblity of
Legionella infection due to other serogroups or species of
Legionella. Clinical correlation is recommended.
Streptococcus pneumoniae Antigen (M - Final
Negative for Streptococcus pneumoniae antigen.
A negative result does not exclude infection with
Streptococcus pneumoniae. Clinical correlation is
recommended.
05/10/24 18:25 Influenza Types A & B (BRANDEN) - Final
Nasal Swab Negative for Influenza A & B, NAAT
Negative results must be combined with clinical observations
and patient history.
Nucleic Acid Amplification test (NAAT)performed on the
[employer] NOW platform.
05/10/24 17:22 Influenza Types A & B (BRANDEN) - Final
Nasal Swab Test repeatedly invalid.
Nucleic Acid Amplification test (NAAT)performed on the
[employer] NOW platform.
05/11/24 CT chest: Mild bibasilar subsegmental atelectasis, otherwise clear lungs. Abnormality on chest x-ray was likely related to tortuosity of the brachiocephalic artery, best appreciated on coronal images.
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
--- NOTE | 2024-05-13 13:01 | W.PN.UPDATE ---
Update Note
Progress Note Update
Pt seen, resting in bed calmly, alert, making eye contact. Does not speak Afghan. No agitation this morning, wearing mitts. Pt has orders for prn Risperdal or Zyprexa- neither has been needed yet.
Imp: Dementia with behavior disturbance
TME- appears to be improving, sensorium appears intact today
Rec: continue above prn medications
will follow
--- NOTE | 2024-05-13 13:33 | W.DCSUMMARY ---
Discharge Summary
Discharge Data
Date of Admission: 05/10/24
Date of Discharge: 05/13/24
-
Pending Results: No
Hospital Course
Discharging Physician : Dr. Kwesi Schneider
Disposition :
Primary care physician :
Principal Discharge diagnosis :
1. Acute urinary retention status post Meza catheter placement and outpatient follow-up with urology as this was a difficult catheter placement and started on Flomax, no evidence of UTI
2. Fever unexplained, no evidence of infection if it eventually pneumonia was suspected antibiotic started will discontinue
3. Dementia
4. Vitamin B12 deficiency, his vitamin level was 207
5. Confusion and agitation during hospitalization
6. Hypertension
History of present illness:
Patient is a 83-year-old male with past medical history significant for hypertension who presented to [place] ED for evaluation of fever. Patient daughter and grandson at bedside to assist in history. Patient was at baseline yesterday with just a
decreased appetite. Today is reported he had bilateral lower extremity pain and difficulty ambulating, with decreased appetite and red face. Family brought him for evaluation and at ED assessment patient was nonverbal. Patient normally ambulates
with assistance of cane at home. Daughter described patient speaks with 'his sabino' and will ask 'his angle what he should do.' Denies any psych or dementia diagnosis. Denies any chills, shortness of breath, nausea, vomiting, constipation, diarrhea
or urinary symptoms.
Hospital Course :
So patient admitted for weakness and fever, initially started on antibiotic for pneumonia per x-ray while CAT scan showed no abnormalities and infectious disease consulted where they stopped the antibiotic.
,also have asked urine retention, there was a failed attempt by nurses to place a catheter eventually urology consulted and they placed a Meza catheter which is going to be discharged with the catheter ends. Instruction in the discharge and
follow-up with urology. Urinalysis showed no evidence of infection.
Patient during hospitalization of evidence of confusion and agitation with known history of dementia overall he was not verbalizing much especially is not speaking Welsh,
Today was seen and evaluated by me he was awake, alert and oriented have no complaint and daughter in law at the bedside and they want him to go home with the [id number] and the son, patient's condition explained to her in detail and expressed
understanding advised about encourage oral hydration, need continued supervision and outpatient follow-up with primary care and urology and return back to the hospital if symptoms return or urine become milky or bloody or develop fever or abdominal
pain.
Started on Flomax.
Also noticed today that his vitamin B-12 was 207 which is low gave him a dose of IM x 1 specially he wants to go home and the family wants to take him home and discharge him on sublingual pill per medication which cyanocobalamin (B12)-cobamamide
5,000 mcg-100 mcg sublingual lozenge daily and need to be followed up by primary care physician for the repeat in few months down the road.
Important imaging findings :
None
Discharge Instructions:
Discharge Diagnosis/ProceduresUrine retention
Diet Low Cholesterol,2 Gram Sodium
Activity With assistance
Additional Activity Fall precaution
Driving Restrictions No driving
Instructions:
Stand-Alone Forms:
Changes to Home Medications: No
Discharge Medications:
DC Medications w/original date entered in [employer]
isosorbide mononitrate 30 mg tablet,extended release 24 hr 30 mg PO DAILY 05/10/24
cyanocobalamin (B12)-cobamamide 5,000 mcg-100 mcg sublingual lozenge (B12) 1 indy sublingual DAILY #30 ea 05/13/24
tamsulosin 0.4 mg capsule 0.4 mg PO DAILY #30 caps 05/13/24
Home Medication Changes
Pending Results: No
Additional Pending Results:
Physical exam:
General: Awake, alert and oriented to person, cognitive decline and confusion appreciated but calm and comfort not in distress and holds appropriate conversation.
HEENT: No active discharge, ecchymosis or bruising, moist lips, tongue and mucous membrane.
Eyes: No discharge or red conjunctiva, no nystagmus, pupils are reactive and equal
Neck:Supple, no JVD no bruit no goiter.
Respiratory: Normal AP contour and diameter, normal chest wall movement, normal respiratory effort, no respiratory distress,
Lungs: Good air entry bilaterally, no wheezing or rhonchi, no rales or crackles
Heart: S1, S2 regular, normal rate, no added sound.
Gastrointestinal: Positive bowel sounds, soft, nontender, no guarding or rigidity or organomegaly
Musculoskeletal: , no chest wall abnormality or tenderness. All joints and extremities have good range of motion, no muscle tenderness or any joint swelling or tenderness.
Extremities: No pitting edema, good peripheral pulses, good range of motion
Skin: Warm and dry, no joint, normal color.
Neurological: Awake, alert and oriented to person, move extremities freely, cognitive decline appreciated, speech clear good muscle tone,
Psychiatric: Normal mood, pleasantly confused abnormal thought and judgment, normal affect,
Condition on discharge: Awake, alert and oriented x1, dependent on the family especially the daughter, need assistant field hockey coach for making decision and caring for activity of daily living, continues with the bowel incontinent for urination.
Goes home as she is staying with the daughter who cares for her. Need to continue was supervision.
Discharge Plan
-
Patient Disposition: Home with Home Care
Discharge Diagnosis/Procedures: Urine retention
Condition: Fair
Diet: Low Cholesterol and 2 Gram Sodium
Activity: With assistance
Additional Activity: Fall precaution
Driving Restrictions: No driving
Referrals:
Benji Fernandez MD [Family Provider] -
Royer Gordon MD [Active] - (schedule 30-minute appointment during May WITH an Welsh-speaking pepper cutter, if possible)
Prescriptions:
New
tamsulosin 0.4 mg Capsule
0.4 mg PO DAILY Qty: 30 1RF
B12 5,000-100 mcg lozenge
1 indy sublingual DAILY Qty: 30 1RF
Continued
isosorbide mononitrate 30 mg Tablet Extended Release 24 Hr
30 mg PO DAILY
Discharge Orders:
Discharge Patient (As Directed); Ordered 05/13/24
Ordered By: Kwesi Schneider
Discharge Date and Time
Discharge Date/Time: 05/13/24 14:50
Print Language: TAMAZIGHT
--- NOTE | 2024-05-13 18:09 | W.DS.TRANS ---
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
-
Discharge Instructions:
Discharge Diagnosis/Procedures Urine retention
Diet Low Cholesterol,2 Gram Sodium
Activity With assistance
Additional Activity Fall precaution
Driving Restrictions No driving
Instructions:
Stand-Alone Forms:
Changes to Home Medications: No
Discharge Medications:
DC Medications w/original date entered in [employer]
isosorbide mononitrate 30 mg tablet,extended release 24 hr 30 mg PO DAILY 05/10/24
cyanocobalamin (B12)-cobamamide 5,000 mcg-100 mcg sublingual lozenge (B12) 1 indy sublingual DAILY #30 ea 05/13/24
tamsulosin 0.4 mg capsule 0.4 mg PO DAILY #30 caps 05/13/24
Home Medication Changes
Pending Results: No
Additional Pending Results:
Physical exam:
General: Awake, alert and oriented to person, cognitive decline and confusion appreciated but calm and comfort not in distress and holds appropriate conversation.
HEENT: No active discharge, ecchymosis or bruising, moist lips, tongue and mucous membrane.
Eyes: No discharge or red conjunctiva, no nystagmus, pupils are reactive and equal
Neck:Supple, no JVD no bruit no goiter.
Respiratory: Normal AP contour and diameter, normal chest wall movement, normal respiratory effort, no respiratory distress,
Lungs: Good air entry bilaterally, no wheezing or rhonchi, no rales or crackles
Heart: S1, S2 regular, normal rate, no added sound.
Gastrointestinal: Positive bowel sounds, soft, nontender, no guarding or rigidity or organomegaly
Musculoskeletal: , no chest wall abnormality or tenderness. All joints and extremities have good range of motion, no muscle tenderness or any joint swelling or tenderness.
Extremities: No pitting edema, good peripheral pulses, good range of motion
Skin: Warm and dry, no joint, normal color.
Neurological: Awake, alert and oriented to person, move extremities freely, cognitive decline appreciated, speech clear good muscle tone,
Psychiatric: Normal mood, pleasantly confused abnormal thought and judgment, normal affect,
Condition on discharge: Awake, alert and oriented x1, dependent on the family especially the daughter, need assistant family teacher for making decision and caring for activity of daily living, continues with the bowel incontinent for urination.
Goes home as she is staying with the daughter who cares for her. Need to continue was supervision.
== END 2024-05-13 14:50 | disposition home health service (06) | DRG 884 ==
LOC: 4 EAST ACU 22:03
PROVIDERS: Internal Medicine; Nurse Practitioner Family; Registered Nurse; ADMITTING PHYSICIAN Internal Medicine; ATTENDING PHYSICIAN Internal Medicine; CONSULT PHYSICIAN Internal Medicine Infectious Disease; CONSULT PHYSICIAN Psychiatry & Neurology Psychiatry; CONSULT PHYSICIAN Specialist; EMERGENCY PHYSICIAN Emergency Medicine; FAMILY PHYSICIAN Internal Medicine
PROC: 0T9B70Z Drainage of Bladder with Drainage Device, Via Natural or Artificial Opening (ICD-10-PCS; 2024-05-11)
DX: F03.918 Unspecified dementia, unspecified severity, with other behavioral disturbance (principal); G93.41 Metabolic encephalopathy; R78.81 Bacteremia; R44.3 Hallucinations, unspecified; F03.911 Unspecified dementia, unspecified severity, with agitation; F03.92 Unspecified dementia, unspecified severity, with psychotic disturbance; I10 Essential (primary) hypertension; R62.7 Adult failure to thrive; R33.8 Other retention of urine; E53.8 Deficiency of other specified B group vitamins; Z78.1 Physical restraint status; Z68.20 Body mass index [BMI] 20.0-20.9, adult
CPT/HCPCS: 51701; 70450; 71045; 71260; 80048; 80053; 81003; 82306; 82607; 82746; 83605; 84145; 84443; 84484; 85025; 85027; 85610; 85730; 87040; 87150; 87205; 87449; 87502; 87811; 87899; 92610; 93005; 96361; 96365; 97116; 97163; 97167; 97535; 99285; G0103; Q9967